=== PATIENT | female | born 2000 | race Caucasian/White ===

== ENCOUNTER 2022-03-11 16:16 | Emergency (ER) | payer BC ==
[~2022-03-11] VITALS: Ht 167.6 cm; Wt 54.5 kg
[2022-03-11 17:10] LABS: BASOPHILS % (AUTO) 0.5 % (0-1); EOSINOPHILS # (AUTO) 0.1 X10'3 (0-0.9); EOSINOPHILS % (AUTO) 0.9 % (0-6); HEMATOCRIT 42.7 % (35.0-45.0); HEMOGLOBIN 14.5 g/dl (12.0-16.0); LYMPHOCYTES % (AUTO) 29.2 % (21-51); MEAN CORPUSCULAR HEMOGLOBIN 31.6 PG (27.0-31.0); MEAN CORPUSCULAR VOLUME 92.8 FL (78-98); MEAN PLATELET VOLUME 6.8 FL (7.4-10.4); MONOCYTES # (AUTO) 0.5 X10'3 (0-0.9); MONOCYTES % (AUTO) 7.6 % (2-12); NEUTROPHILS # (AUTO) 4.2 X10'3 (1.8-7.7); NEUTROPHILS % (AUTO) 61.8 % (42-75); PLATELET COUNT 296 X10'3 (140-440); RED CELL DISTRIBUTION WIDTH 13.1 % (11.5-14.5); WHITE BLOOD COUNT 6.8 X10'3 (4.5-11.0)
[2022-03-11 17:26] LABS: ALANINE AMINOTRANSFERASE 21 U/L (12-78); ALBUMIN 4.4 G/DL (3.4-5.0); ALBUMIN/GLOBULIN RATIO 1.3 (1.1-1.5); ALKALINE PHOSPHATASE 74 IU/L (46-116); ANION GAP 8 (8-16); ASPARTATE AMINO TRANSFERASE 25 U/L (10-37); BILIRUBIN,TOTAL 0.6 MG/DL (0.1-1.0); BLOOD UREA NITROGEN 10 MG/DL (7-18); BUN/CREATININE RATIO 14.5 (6.6-38.0); CHLORIDE 103 MMOL/L (99-107); CREATININE 0.69 MG/DL (0.40-0.90); GLUCOSE 86 MG/DL (70-104); POTASSIUM 3.7 MMOL/L (3.5-5.1); SODIUM 139 MMOL/L (135-145); TOTAL CARBON DIOXIDE 28.5 MMOL/L (24-32); TOTAL PROTEIN 7.9 G/DL (6.4-8.2); eGFR > 90 ML/MIN
--- NOTE | 2022-03-11 18:16 | NUR ---
BED 16 STRIPPED AND PATIENT CHANGED IN GREEN SCRUBS. BELONGINGS BAGGED AT BED BEDSIDE.
--- NOTE | 2022-03-11 18:18 | NUR ---
CAUTION DINNER TRAY ORDERED.
[2022-03-11 18:20] LABS: ETHANOL < 0.010 GM/DL (0.0-0.010)
[2022-03-11 19:22] LABS: URINE HCG NEGATIVE (NEG)
[2022-03-11] MEDS ORDERED: PRAZOSIN PO (19:23)
[2022-03-11] MEDS ORDERED: FLUO-84 PO (19:23)
[2022-03-11] MEDS ORDERED: FLUO-81 PO (19:23)
[2022-03-11] MEDS ORDERED: LURA20TA PO (19:23)
[2022-03-11] MEDS ORDERED: HYDR-3686 PO (19:23)
[2022-03-11 19:34] LABS: CLARITY,URINE CLEAR (Clear); COLOR,URINE YELLOW (Yellow); GLUCOSE, URINE NEGATIVE (Neg); KETONES,URINE 40 mg/dl (Neg); LEUKOCYTE ESTERASE ,URINE NEGATIVE (Neg); NITRITES, URINE NEGATIVE (Neg); OCCULT BLOOD,URINE NEGATIVE (Neg); PROTEIN,URINE NEGATIVE (Neg); UA COLLECTION TYPE CLN CATCH MIDSTREAM; UROBILINOGEN,URINE 0.2 E.U/dL (0.2-1.0)
[2022-03-11 19:43] LABS: URINE AMPHETAMINE SCREEN NEGATIVE (Neg); URINE BARBITUATE SCREEN NEGATIVE (Neg); URINE BENZODIAZEPINES SCREEN NEGATIVE (Neg); URINE CANNABINOID SCREEN POSITIVE (Neg); URINE COCAINE SCREEN NEGATIVE (Neg); URINE METHADONE SCREEN NEGATIVE (Neg); URINE OPIATE SCREEN NEGATIVE (Neg); URINE PHENCYCLIDINE SCREEN NEGATIVE (Neg)
--- NOTE | 2022-03-11 20:25 | NUR ---
1:1 Interview at nurses station. Patient is polite, linear, she is well spoken. S/I is present with a plan to overdose on Benadryl. The patient states many suicidal thoughts over many weeks. One suicide attempt by overdose was attempted in June of 2021. This patient speaks in a quiet voice, the rhythm is regular. She makes direct eye contact. Patient states recent panic attacks. Patient states she paces when panic attacks happen. There is a depression and anxiety history. She is followed by Dr. Clark. Patients med rec is done. Patient bowel movements are every other day on average. She voids regularly. Patient denies any current audible or visual hallucinations at this time. The patient does mention that she has noticed her name being called when nobody was there. This happened while at work recently. Patient is not employed at this time, she lives with her parents.
--- NOTE | 2022-03-11 20:43 | NUR ---
[facility] packet faxed
[2022-03-11] MEDS ORDERED: PRAZ1CAP5 PO (21:07)
[2022-03-11] MEDS ORDERED: prazosin 1mg capsule PO ONE (21:20)
[2022-03-11] MEDS: lurasidone 20mg tablet PO SCH (21:42)
--- NOTE | 2022-03-11 22:27 | NUR ---
Patientis medication compliant. She is preparing for sleep. No distress.
--- NOTE | 2022-03-12 00:46 | NUR ---
Patient up to bathroom to void. She then returned to sleep.
--- NOTE | 2022-03-12 01:20 | NUR ---
Patient is sleeping quietly on her left side.
--- NOTE | 2022-03-12 03:21 | NUR ---
Patient is quietly sleeping. She has self repositioned onto her right side.
--- NOTE | 2022-03-12 06:30 | NUR ---
Assumed Care. Pt appears to be sleeping. RR even and unlabored.
--- NOTE | 2022-03-12 08:30 | NUR ---
Pt is up for breakfast. She ate and now appears to be sleeping.
[2022-03-12] MEDS: FLUoxetine 20mg capsule PO SCH (09:43)
[2022-03-12] MEDS: FLUoxetine 10mg capsule PO SCH (09:46)
--- NOTE | 2022-03-12 10:30 | NUR ---
Pt is making phone calls to family.
--- NOTE | 2022-03-12 12:30 | NUR ---
Pt ate lunch. She then did some yoga and called Mom. Pt is upset over being held on the 5150. Pt agrees to lay down and do some deep breathing.
--- NOTE | 2022-03-12 12:45 | NUR ---
Pt is tearful. She asked for and was given Atarax 25mg. Pt then returned to her bed and covered up and closed her eyes.
[2022-03-12] MEDS: hydrOXYzine 25 MG tablet PO PRN (12:49)
--- NOTE | 2022-03-12 14:10 | NUR ---
Pt continues to rest on her bed with her eyes closed.
--- NOTE | 2022-03-12 16:30 | NUR ---
Pt's mother is here visiting. She brought her in 2 books. Pt is calm and cooperative.
--- NOTE | 2022-03-12 17:01 | NUR ---
ER registration faxed new facesheet to [facility] office
--- NOTE | 2022-03-12 18:30 | NUR ---
Patient is visiting with her mother at bedside. No distress.
--- NOTE | 2022-03-12 19:38 | NUR ---
Patient is sitting in bed, she reads quietly.
[2022-03-12] MEDS: lurasidone 20mg tablet PO SCH (20:26)
[2022-03-12] MEDS ORDERED: prazosin 1mg capsule PO SCH (21:00)
--- NOTE | 2022-03-12 21:00 | NUR ---
Patient is resting quietly, she has did eat her dinner. Patient is medication compliant.
--- NOTE | 2022-03-12 22:15 | NUR ---
Patient was interviewed 1:1 at bedside. The patient is well oriented, cooperative, she makes direct eye contact. The patient had visitation with her mother following shift change. The patient denies S/I or H/I. The patient still has thoughts of how to suicide however. The patient is reading and exercising. Patient smiles often.
--- NOTE | 2022-03-13 03:56 | NUR ---
Patient is sleeping quietly on her left side.
[2022-03-13 05:49] VITALS: BP 112/60
--- NOTE | 2022-03-13 06:01 | NUR ---
Patient awakens, goes to restroom. She is brushing her teeth.
--- NOTE | 2022-03-13 08:15 | NUR ---
Pt sitting at bedside eathing breakfast tray, pt remains calm, cooperative and denies needs.
[2022-03-13] MEDS: FLUoxetine 20mg capsule PO SCH (08:34)
[2022-03-13] MEDS: FLUoxetine 10mg capsule PO SCH (08:34)
--- NOTE | 2022-03-13 10:16 | NUR ---
Pt currently talking on phone
--- NOTE | 2022-03-13 11:06 | NUR ---
Irish from the [facility] office called to report that pt has been accepted by Dr Ruperto Pearson at [facility]. She is coordinating a picker packer time.
--- NOTE | 2022-03-13 11:07 | NUR ---
Christy from [facility] called requesting to speak with pt's nurse who is currently on a break. She requests a call back for a nurse to nurse report at [phone].
--- NOTE | 2022-03-13 11:23 | NUR ---
Pt has been accepted at [facility] with accepting Dr Ruperto Pearson. Nurse to nurse report given to Lindsey, transport being coorinated by [facility].
[2022-03-13] MEDS: hydrOXYzine 25 MG tablet PO PRN (11:33)
--- NOTE | 2022-03-13 12:16 | NUR ---
Report from Irish of [facility] office that transport for pt to arrive around [phone]
--- NOTE | 2022-03-13 12:30 | NUR ---
Pt given hot water for herbal tea per pt request. Pt remains calm and cooperative.
--- NOTE | 2022-03-13 14:55 | NUR ---
Pt mother here visiting pt at bedside. Transport to arrive at anytime now for transport to psych facility.
--- NOTE | 2022-03-13 15:30 | NUR ---
Pt with reading glasses, clothing from home, personal hygeine supplies and books. Pt escorted out by security and flight/transport nurse per hospital policy.
== END 2022-03-13 15:30 | disposition still patient (30) ==
LOC: ER 16:17
DX: F32.A Depression, unspecified (principal); Z20.822 Contact with and (suspected) exposure to COVID-19; R45.851 Suicidal ideations; F12.90 Cannabis use, unspecified, uncomplicated; Z72.89 Other problems related to lifestyle; Z79.899 Other long term (current) drug therapy
CPT/HCPCS: 36415; 80053; 80305; 80320; 81003; 81025; 84443; 85025; 87811; 99285; Q0177

== ENCOUNTER 2022-04-14 17:56 | Emergency (ER) | payer BC ==
[~2022-04-14] VITALS: Ht 172.7 cm; Wt 54.0 kg
[2022-04-14 17:56] VITALS: BP 149/65
[~2022-04-14 17:56] MED LIST: FLUO-81 PO; FLUO-84 PO; HYDR-3686 PO; LURA20TA PO; PRAZ1CAP5 PO
== END 2022-04-14 18:56 ==
LOC: ER 17:57
DX: F12.90 Cannabis use, unspecified, uncomplicated; V89.2XXA Person injured in unspecified motor-vehicle accident, traffic, initial encounter; Y93.89 Activity, other specified; Y92.89 Other specified places as the place of occurrence of the external cause; Y99.8 Other external cause status
CPT/HCPCS: 99283

== ENCOUNTER 2023-04-05 15:28 | Emergency (ER) | payer BC, MEDICAID ==
[~2023-04-05] VITALS: Ht 172.7 cm; Wt 59.2 kg
[~2023-04-05 15:28] MED LIST changes: -LURA20TA PO; +LURA20TA8 PO
[2023-04-05] MEDS ORDERED: TETanus/Pertussis (Acell)/Diphther VAC/PF (Tdap-Adult) 0.5ml syringe IMVAC ONE (15:55)
[2023-04-05] MEDS ORDERED: ceFAZolin/D5W- 1GM premix 50 ML IV SCH (16:00)
[2023-04-05 16:28] LABS: BASOPHILS # (AUTO) 0.1 X10'3 (0-0.2); BASOPHILS % (AUTO) 0.8 % (0-1); EOSINOPHILS # (AUTO) 0.1 X10'3 (0-0.9); HEMATOCRIT 45.4 % (35.0-45.0); HEMOGLOBIN 15.4 g/dl (12.0-16.0); LYMPHOCYTES # (AUTO) 2.5 X10'3 (1.1-4.8); LYMPHOCYTES % (AUTO) 32.5 % (21-51); MEAN CORPUSCULAR HEMOGLOBIN 32.7 PG (27.0-31.0); MEAN CORPUSCULAR VOLUME 96.2 FL (78-98); MONOCYTES # (AUTO) 0.4 X10'3 (0-0.9); MONOCYTES % (AUTO) 4.9 % (2-12); NEUTROPHILS # (AUTO) 4.6 X10'3 (1.8-7.7); NEUTROPHILS % (AUTO) 60.8 % (42-75); PLATELET COUNT 401 X10'3 (140-440); RED BLOOD COUNT 4.72 X10'6 (4.20-5.60); RED CELL DISTRIBUTION WIDTH 13.5 % (11.5-14.5); WHITE BLOOD COUNT 7.6 X10'3 (4.5-11.0)
[2023-04-05 17:36] LABS: ALANINE AMINOTRANSFERASE 22 U/L (12-78); ALBUMIN 3.5 G/DL (3.4-5.0); ALBUMIN/GLOBULIN RATIO 1.1 (1.1-1.5); ALKALINE PHOSPHATASE 61 IU/L (46-116); ANION GAP 11 (8-16); ASPARTATE AMINO TRANSFERASE 24 U/L (10-37); BILIRUBIN,TOTAL 0.3 MG/DL (0.1-1.0); BLOOD UREA NITROGEN 6 MG/DL (7-18); BUN/CREATININE RATIO 10.5 (10.0-20.0); CALCIUM 7.7 MG/DL (8.5-10.1); CHLORIDE 109 MMOL/L (99-107); CREATININE 0.57 MG/DL (0.40-0.90); ETHANOL 155 MG/DL (<10); GLUCOSE 86 MG/DL (70-104); LIPASE 22 U/L (16-77); MAGNESIUM 1.9 MG/DL (1.5-2.4); POTASSIUM 3.5 MMOL/L (3.5-5.1); SALICYLATE 2.5 MG/DL (4.0-20.0); SODIUM 142 MMOL/L (135-145); TOTAL CARBON DIOXIDE 21.8 MMOL/L (24-32); TOTAL PROTEIN 6.6 G/DL (6.4-8.2); eCRCL 143 ML/MIN; eGFR > 90 ML/MIN
[2023-04-05 17:42] LABS: ACETAMINOPHEN < 2.0 UG/ML (10-30)
[2023-04-05 17:43] LABS: HCG SERUM QL NEGATIVE
--- NOTE | 2023-04-05 18:16 | NUR ---
Report called to Herrera Posey RN @ [facility]. Phone number report called to: [phone]. Flight medics left with patient @ 1810. Last set of vitals: 128/84, RR 18, HR97, 98% RA BP cuff tourniquet in place at this time. CMS+ in all left hand digits, cap refill <2 seconds. Packet sent with patient.
[2023-04-05 18:20] VITALS: BP 128/84; PULSE 97; RESP 18; O2SAT 99
--- NOTE | 2023-04-05 18:43 | NUR ---
Suicide risk assessment performed prior to patient being transferred, but charted afterwards. Physical care (controlling bleeding and medicating pt) superceeded psychosocial charting during pt's stya. Patient stating she "feels fine" during time in the ER, but "it was bad" earlier. Stating she had no suicidal thoughts. Significant other at bedside entire time and room within view of nurses station.
== END 2023-04-05 18:48 ==
LOC: ER 15:28
DX: S61.512A Laceration without foreign body of left wrist, initial encounter (principal)
CPT/HCPCS: 36415; 80053; 80320; 80329; 83690; 83735; 84703; 85025; 86885; 86900; 86901; 90471; 90715; 93005; 93931; 96365; 99285; J0690; A6449

== ENCOUNTER 2024-10-16 15:22 | Emergency (ER) | payer BC, MEDICAID ==
[~2024-10-16] VITALS: Ht 172.7 cm; Wt 57.9 kg
[2024-10-16 16:20] LABS: BASOPHILS % (AUTO) 0.4 % (0-1); EOSINOPHILS % (AUTO) 0.3 % (0-6); HEMATOCRIT 42.8 % (35.0-45.0); HEMOGLOBIN 14.4 g/dl (12.0-16.0); LYMPHOCYTES # (AUTO) 1.2 X10'3 (1.1-4.8); LYMPHOCYTES % (AUTO) 12.5 % (21-51); MEAN CORPUSCULAR HEMOGLOBIN 30.5 PG (27.0-31.0); MEAN CORPUSCULAR HGB CONC 33.6 g/dL (33.0-36.5); MEAN CORPUSCULAR VOLUME 90.8 FL (78-98); MEAN PLATELET VOLUME 6.9 FL (7.4-10.4); MONOCYTES # (AUTO) 0.5 X10'3 (0-0.9); MONOCYTES % (AUTO) 5.3 % (2-12); NEUTROPHILS # (AUTO) 7.9 X10'3 (1.8-7.7); NEUTROPHILS % (AUTO) 81.5 % (42-75); PLATELET COUNT 426 X10'3 (140-440); RED BLOOD COUNT 4.71 X10'6 (4.20-5.60); RED CELL DISTRIBUTION WIDTH 13.6 % (11.5-14.5); WHITE BLOOD COUNT 9.7 X10'3 (4.5-11.0)
[2024-10-16 16:27] LABS: ALANINE AMINOTRANSFERASE 23 U/L (12-78); ALBUMIN 4.2 G/DL (3.4-5.0); ALBUMIN/GLOBULIN RATIO 1.3 (1.1-1.5); ALKALINE PHOSPHATASE 87 IU/L (46-116); ANION GAP 8 (8-16); ASPARTATE AMINO TRANSFERASE 23 U/L (10-37); BILIRUBIN,TOTAL 0.3 MG/DL (0.1-1.0); BLOOD UREA NITROGEN 5 MG/DL (7-18); BUN/CREATININE RATIO 9.3 (10.0-20.0); CALCIUM 8.9 MG/DL (8.5-10.1); CHLORIDE 101 MMOL/L (99-107); CREATININE 0.54 MG/DL (0.40-0.90); GLUCOSE 109 MG/DL (70-104); POTASSIUM 4.1 MMOL/L (3.5-5.1); SODIUM 136 MMOL/L (135-145); TOTAL CARBON DIOXIDE 26.6 MMOL/L (24-32); TOTAL PROTEIN 7.4 G/DL (6.4-8.2); eCRCL 145 ML/MIN; eGFR > 90 ML/MIN
[2024-10-16] MEDS ORDERED: iohexol 300mg/ml 100ml inj. ONE (16:27)
[2024-10-16 16:58] VITALS: TEMP 97.7
[2024-10-16 17:22] LABS: URINE HCG NEGATIVE (NEG)
--- NOTE | 2024-10-16 17:48 | Physician Documentation ---
History of Present Illness ~ Chief Complaint: Foreign body Stated Complaint: SWALLOWED GLASS/BLOOD IN STOOL Time Seen by MD: 15:47 Primary Medical Doctor: DAMIAN HENDRICKS 24 year old female reports that on Tuesday she was drinking through a glass straw and believes that she may have swallowed 2x 1cm pieces of broken glass. Today she experienced some diffuse abdominal pain and some dark colored stool. She denies fever, N/V/D. Medication Reconciliation Allergies: Coded Allergies: No Known Allergies (Unverified , 10/16/24) Scheduled Fluoxetine Hcl (Fluoxetine Hcl), 1 CAP PO DAILY, (Reported) Fluoxetine Hcl (Fluoxetine Hcl), 1 CAP PO DAILY, (Reported) Lurasidone HCl (Latuda), 1 TAB PO HS, (Reported) Prazosin Hcl (Prazosin Hcl), 1 CAP PO HS, (Reported) Scheduled PRN Hydroxyzine Hcl* (Atarax*), 1 TAB PO DAILY PRN for anxiety, (Reported) Past Medical History Past Medical History: Depression Past Surgical History: no surgical history Alcohol Use: Alcoholic Drug Use: marijuana Lives with: Family Lives In: Home Past Social History: Reports when drinks alcohol, drinks significant amount. Review of Systems All Other Systems at this time: Reviewed and Negative Physical Exam Vital Signs: RN Vital Signs have been reviewed: Yes, Temperature: 97.7, Source: Temporal, Heart Rate: 58, Respiratory Rate: 16, BP: 117/68, Pulse Oximetry: 98, Weight: 57.850 Oxygen Flow Rate: 0 Physical Exam HEENT: PERRL, moist oral mucosa, EOMI Pulmonary: No respiratory distress Cardiac: RRR, no murmur, rub or gallop GI: nondistended, soft, nontender, no guarding, no rebound MSK: no deformity Skin: w/d/i, no rash Neuro: alert, nonfocal Psych: normal affect Progress Results/Orders Results/Orders Orders - ROSARIO SOLIMAN MD Ct Abdomen Pelvis (10/16/24 15:42) Completed Orders - ROSARIO SOLIMAN MD Cbc/Diff (10/16/24 15:42) CMP (10/16/24 15:42) Hcg, Ur Ql (10/16/24 15:52) Iohexol 300mg/Ml 100ml Inj. (Omnipaque-3 (10/16/24 16:27) Vital Signs 10/16/24 10/16/24 10/16/24 15:24 16:05 16:58 Temp 97.7 97.7 Pulse 66 58 Resp 18 16 B/P (MAP) 121/78 117/68 (84) Pulse Ox 99 98 O2 Flow Rate 0 Laboratory Tests Test 10/16/24 15:35 10/16/24 16:55 White Blood Count 9.7 Red Blood Count 4.71 Hemoglobin 14.4 Hematocrit 42.8 Mean Corpuscular Volume 90.8 Mean Corpuscular Hemoglobin 30.5 Mean Corpuscular Hemoglobin Concent 33.6 Red Cell Distribution Width 13.6 Platelet Count 426 Mean Platelet Volume 6.9 L Neutrophils (%) (Auto) 81.5 H Lymphocytes (%) (Auto) 12.5 L Monocytes (%) (Auto) 5.3 Eosinophils (%) (Auto) 0.3 Basophils (%) (Auto) 0.4 Neutrophils # (Auto) 7.9 H Lymphocytes # (Auto) 1.2 Monocytes # (Auto) 0.5 Eosinophils # (Auto) 0.0 Basophils # (Auto) 0.0 CBC Comment Sodium Level 136 Potassium Level 4.1 Chloride Level 101 Carbon Dioxide Level 26.6 Anion Gap 8 Blood Urea Nitrogen 5 L Creatinine 0.54 Estimated GFR/1.73 m2 > 90 BUN/Creatinine Ratio 9.3 L Glucose Level 109 H Calcium Level 8.9 Total Bilirubin 0.3 Aspartate Amino Transf (AST/SGOT) 23 Alanine Aminotransferase (ALT/SGPT) 23 Alkaline Phosphatase 87 Total Protein 7.4 Albumin 4.2 Globulin 3.2 Albumin/Globulin Ratio 1.3 Chemistry Comments Urine HCG, Qualitative Negative Medical Decision Making Findings 24 year old female with abdominal pain and possible broken glass ingestion. Dr. Taylor recommends CT scan and labs and discharge if no findings, given duration of time that has passed. Will sign out to oncoming ER physician for disposition. Departure Disposition: 30 STILL A PATIENT Impression: Primary Impression: Foreign body ingestion Condition: Stable Discharge Instructions: Foreign Body, Swallowed, Adult Referrals: NO PRIMARY CARE PROVIDER (PCP) Education Educated: Patient Educated regarding: diagnosis, treatment, prognosis, need for follow up Signature Scribe Signature: . Attestation: . ROSARIO SOLIMAN MD October 16, 2024 17:48
--- NOTE | 2024-10-16 18:15 | RADIOLOGY REPORT ---
Indication: abdomnial pain after swallowing broken glass Technique: CT axial images of the abdomen and pelvis are obtained with intravenous contrast. Coronal and sagittal reformats were obtained. Radiation Dose Information: CTDI volume is 6.4 mGy. Dose-length product is 305 mGy*cm Comparison: None FINDINGS: Lung bases demonstrate no pleural effusion. Adrenal glands, spleen and pancreas unremarkable. No enhancing hepatic lesion. Fatty infiltration jason ng the falciform. No CT evidence for cholelithiasis. Kidneys demonstrate no hydronephrosis. Small hiatal hernia. Distal esophageal wall thickening. Stomach is partially distended. Small ashlyn l loops are normal in caliber. 12 mm radiopaque density in the small bowel in the left abdomen/jejuna l loops. There is a moderate volume stool within the colon. Normal appendix. Abdominal aorta normal in caliber. Bladder partially distended. Left ovarian cyst measuring 1.9 cm. No inguinal lymphadenopathy. IMPRESSION: 1. No evidence for pneumoperitoneum. 12 mm radiopaque density in the small bowel loops in the left ab domen /jejunum, may represent the ingested foreign body. 2. Distal esophageal Wall thickening. Recommend GI consultation for further evaluation. 3. Left ovarian cyst measuring 1.9 cm. 4. Other findings as described.
[2024-10-16 18:42] VITALS: BP 120/71; PULSE 77; RESP 16; O2SAT 98
== END 2024-10-16 18:45 | disposition still patient (30) ==
LOC: ER 15:22
DX: T18.9XXA Foreign body of alimentary tract, part unspecified, initial encounter (principal); W44.9XXA Unspecified foreign body entering into or through a natural orifice, initial encounter; Y93.89 Activity, other specified; Y92.89 Other specified places as the place of occurrence of the external cause; Y99.8 Other external cause status
CPT/HCPCS: 36415; 74177; 80053; 81025; 85025; 99285; Q9967

== ENCOUNTER 2024-11-05 22:38 | Emergency (ER) | payer BC ==
[~2024-11-05] VITALS: Ht 172.7 cm; Wt 65.0 kg
[2024-11-05 23:22] LABS: BASOPHILS % (AUTO) 0.6 % (0-1); EOSINOPHILS # (AUTO) 0.1 X10'3 (0-0.9); HEMATOCRIT 41.7 % (35.0-45.0); HEMOGLOBIN 14.2 g/dl (12.0-16.0); LYMPHOCYTES # (AUTO) 2.1 X10'3 (1.1-4.8); LYMPHOCYTES % (AUTO) 28.7 % (21-51); MEAN CORPUSCULAR HEMOGLOBIN 31.4 PG (27.0-31.0); MEAN CORPUSCULAR HGB CONC 34.1 g/dL (33.0-36.5); MEAN CORPUSCULAR VOLUME 92.2 FL (78-98); MEAN PLATELET VOLUME 6.4 FL (7.4-10.4); MONOCYTES # (AUTO) 0.3 X10'3 (0-0.9); MONOCYTES % (AUTO) 4.7 % (2-12); NEUTROPHILS # (AUTO) 4.7 X10'3 (1.8-7.7); PLATELET COUNT 324 X10'3 (140-440); RED BLOOD COUNT 4.52 X10'6 (4.20-5.60); RED CELL DISTRIBUTION WIDTH 14.1 % (11.5-14.5); WHITE BLOOD COUNT 7.2 X10'3 (4.5-11.0)
[2024-11-05 23:38] LABS: ALANINE AMINOTRANSFERASE 42 U/L (12-78); ALBUMIN 4.4 G/DL (3.4-5.0); ALBUMIN/GLOBULIN RATIO 1.3 (1.1-1.5); ALKALINE PHOSPHATASE 73 IU/L (46-116); ANION GAP 12 (8-16); ASPARTATE AMINO TRANSFERASE 44 U/L (10-37); BILIRUBIN,TOTAL 0.4 MG/DL (0.1-1.0); BLOOD UREA NITROGEN 5 MG/DL (7-18); BUN/CREATININE RATIO 8.9 (10.0-20.0); CALCIUM 8.4 MG/DL (8.5-10.1); CHLORIDE 102 MMOL/L (99-107); CREATININE 0.56 MG/DL (0.40-0.90); ETHANOL 209 MG/DL (<10); GLUCOSE 75 MG/DL (70-104); LIPASE 25 U/L (16-77); POTASSIUM 3.3 MMOL/L (3.5-5.1); SODIUM 139 MMOL/L (135-145); TOTAL CARBON DIOXIDE 25.1 MMOL/L (24-32); TOTAL PROTEIN 7.7 G/DL (6.4-8.2); eCRCL 155 ML/MIN; eGFR > 90 ML/MIN
--- NOTE | 2024-11-06 00:02 | Physician Documentation ---
History of Present Illness ~ Chief Complaint: ETOH Stated Complaint: MENTAL HEALTH EVAL Time Seen by MD: 23:58 Primary Medical Doctor: DAMIAN Mode of Arrival: POV HPI Patient presents to the emergency room for suicidal ideation. Patient is a uncooperative with questioning. Family at bedside endorse suicidal ideation in patient Medication Reconciliation Allergies: Coded Allergies: No Known Allergies (Unverified , 10/16/24) Scheduled Fluoxetine Hcl (Fluoxetine Hcl), 1 CAP PO DAILY, (Reported) Fluoxetine Hcl (Fluoxetine Hcl), 1 CAP PO DAILY, (Reported) Lurasidone HCl (Latuda), 1 TAB PO HS, (Reported) Prazosin Hcl (Prazosin Hcl), 1 CAP PO HS, (Reported) Scheduled PRN Hydroxyzine Hcl* (Atarax*), 1 TAB PO DAILY PRN for anxiety, (Reported) Past Medical History Past Medical History: Depression Past Surgical History: no surgical history Alcohol Use: Alcoholic Drug Use: marijuana Lives with: Family Lives In: Home Past Social History: Reports when drinks alcohol, drinks significant amount. Review of Systems ROS Patient was uncooperative with review of systems Physical Exam Vital Signs: Temperature: 97.8, Source: Oral, Heart Rate: 72, Respiratory Rate: 10, BP: 101/54, Pulse Oximetry: 97, Weight: 65.000 Oxygen Flow Rate: 0 Physical Exam General: Patient is awake, alert, oriented x4 in no acute distress Head: Normocephalic and atraumatic. Eyes: Conjunctival normal. EOMI. PERRL. ENT: Mucous membranes moist. Neck: Supple, trachea is midline. Chest: Clear to auscultation bilaterally without rales, rhonchi, or wheezes. There is no accessory muscle use or retractions. Cardiac: RRR without murmurs, gallops, or rubs. Psych: Decreased affect, poor eye contact, suicidal Progress Results/Orders Results/Orders Orders - ANT CALLAWAY MD Urinalysis, Cult If Indicated (11/05/24 23:00) Hcg, Ur Ql (11/05/24 23:00) Completed Orders - ANT CALLAWAY MD Cbc/Diff (11/05/24 23:00) BMP (11/05/24 23:00) Lipase (11/05/24 23:00) CMP (11/05/24 23:00) Ethanol (11/05/24 23:00) Vital Signs 11/05/24 11/05/24 11/05/24 22:48 23:51 23:56 Temp 97.8 97.8 Pulse 74 72 Resp 18 12 10 B/P (MAP) 123/76 101/54 (70) Pulse Ox 100 97 O2 Flow Rate 0 0 Laboratory Tests Test 11/05/24 23:10 White Blood Count 7.2 Red Blood Count 4.52 Hemoglobin 14.2 Hematocrit 41.7 Mean Corpuscular Volume 92.2 Mean Corpuscular Hemoglobin 31.4 H Mean Corpuscular Hemoglobin Concent 34.1 Red Cell Distribution Width 14.1 Platelet Count 324 Mean Platelet Volume 6.4 L Neutrophils (%) (Auto) 65.0 Lymphocytes (%) (Auto) 28.7 Monocytes (%) (Auto) 4.7 Eosinophils (%) (Auto) 1.0 Basophils (%) (Auto) 0.6 Neutrophils # (Auto) 4.7 Lymphocytes # (Auto) 2.1 Monocytes # (Auto) 0.3 Eosinophils # (Auto) 0.1 Basophils # (Auto) 0.0 CBC Comment Sodium Level 139 Potassium Level 3.3 L Chloride Level 102 Carbon Dioxide Level 25.1 Anion Gap 12 Blood Urea Nitrogen 5 L Creatinine 0.56 Estimated GFR/1.73 m2 > 90 BUN/Creatinine Ratio 8.9 L Glucose Level 75 Calcium Level 8.4 L Total Bilirubin 0.4 Aspartate Amino Transf (AST/SGOT) 44 H Alanine Aminotransferase (ALT/SGPT) 42 Alkaline Phosphatase 73 Total Protein 7.7 Albumin 4.4 Globulin 3.3 Albumin/Globulin Ratio 1.3 Lipase 25 Chemistry Comments Ethyl Alcohol Level 209 H Medical Decision Making Findings Patient presents to the emergency room with suicidal ideation. Differentials include but are not limited to suicidal ideation, dysthymia, depression, thyroid disorder. Labs reviewed and there was no evidence of major pathologic derangements and patient is medically cleared for mental health evaluation Departure Disposition: 30 STILL A PATIENT Impression: Primary Impression: Alcoholic intoxication Additional Impressions: Suicidal ideation Hypokalemia Condition: Stable Referrals: NO PRIMARY CARE PROVIDER (PCP) Signature Scribe Signature: No scribe Attestation: The note accurately reflects work and decisions made by me.Ant Callaway MD 11/06/24 00:02 ANT CALLAWAY MD Nov 06, 2024 00:02
[2024-11-06] MEDS: potassium Cl 20 mEq SR tablet PO STA (00:13)
[2024-11-06] MEDS: ondansetron 4mg rapidly disintigrating tab PO ONE (03:50)
[2024-11-06] MEDS: acetaminophen 325mg tablet PO ONE (03:51)
[2024-11-06 08:00] LABS: URINE HCG NEGATIVE (NEG)
[2024-11-06 08:04] LABS: BILIRUBIN,URINE NEGATIVE (Neg); CLARITY,URINE CLEAR (Clear); COLOR,URINE YELLOW (Yellow); GLUCOSE, URINE NEGATIVE (Neg); KETONES,URINE >=80 mg/dl (Neg); LEUKOCYTE ESTERASE ,URINE NEGATIVE (Neg); NITRITES, URINE NEGATIVE (Neg); OCCULT BLOOD,URINE SMALL (Neg); PROTEIN,URINE NEGATIVE (Neg); UROBILINOGEN,URINE 0.2 E.U/dL (0.2-1.0)
[2024-11-06 08:05] LABS: UA COLLECTION TYPE CLN CATCH MIDSTREAM
[2024-11-06 08:13] LABS: BACTERIA,URINE NONE SEEN /HPF (Neg); MUCUS STRANDS MODERATE /LPF (Neg); RBC,URINE 0-2 /HPF (0-2); SQUAMOUS EPITHELIAL CELL,UR FEW /LPF (FEW); WBC,URINE 0-4 /HPF (0-4)
[2024-11-06] MEDS ORDERED: SERT-433 PO (09:54)
[2024-11-06] MEDS ORDERED: TRAZ-251 PO (09:54)
[2024-11-06 09:55] LABS: URINE AMPHETAMINE SCREEN NEGATIVE (Neg); URINE BARBITUATE SCREEN NEGATIVE (Neg); URINE BENZODIAZEPINES SCREEN NEGATIVE (Neg); URINE CANNABINOID SCREEN POSITIVE (Neg); URINE COCAINE SCREEN NEGATIVE (Neg); URINE METHADONE SCREEN NEGATIVE (Neg); URINE OPIATE SCREEN NEGATIVE (Neg); URINE PHENCYCLIDINE SCREEN NEGATIVE (Neg)
[2024-11-06] MEDS ORDERED: traZODone 50mg tablet PO PRN (11:15)
[2024-11-06] MEDS ORDERED: hydrOXYzine 25 MG tablet PO PRN (11:15)
[2024-11-06] MEDS: nicotine 7mg patch - 24hr TD SCH (12:52)
[2024-11-06] MEDS: ondansetron 4mg rapidly disintigrating tab PO PRN (12:53)
[2024-11-06] MEDS: acetaminophen 325mg tablet PO PRN (12:53)
[2024-11-06 13:58] VITALS: BP 92/43; PULSE 63; RESP 16; TEMP 97.3; O2SAT 98
[2024-11-07] MEDS ORDERED: sertraline 50mg tablet PO SCH (08:00)
== END 2024-11-06 13:58 | disposition still patient (30) ==
LOC: ER 22:39
DX: R45.851 Suicidal ideations (principal); F10.129 Alcohol abuse with intoxication, unspecified; E87.6 Hypokalemia; F32.A Depression, unspecified; F12.90 Cannabis use, unspecified, uncomplicated; Y90.9 Presence of alcohol in blood, level not specified; Z79.899 Other long term (current) drug therapy
CPT/HCPCS: 36415; 80053; 80305; 80320; 81001; 81025; 83690; 85025; 99285

== ENCOUNTER 2024-11-25 18:10 | Emergency (ER) | payer BC ==
[~2024-11-25] VITALS: Ht 170.2 cm; Wt 54.5 kg
[~2024-11-25 18:10] MED LIST changes: -FLUO-81 PO; -FLUO-84 PO; -LURA20TA8 PO; -PRAZ1CAP5 PO; +SERT-433 PO; +TRAZ-251 PO
--- NOTE | 2024-11-25 18:39 | Physician Documentation ---
History of Present Illness ~ Chief Complaint: 5150 Stated Complaint: 5150 Time Seen by MD: 18:19 Primary Medical Doctor: DAMIAN HENDRICKS This 24-year-old female with a history of depression presents today via law enforcement on a 5150 due to suicidal ideation. She states that she had tender to OD on her medication. She says that she takes sertraline and trazodone. Take her trazodone to kill herself this is a few this has a many life stressors which have led her to feel this way Medication Reconciliation Allergies: Coded Allergies: No Known Allergies (Unverified , 10/16/24) Scheduled Sertraline Hcl* (Zoloft*), 1 TAB PO DAILY, (Reported) Sertraline Hcl* (Zoloft*), 1 TAB PO DAILY, (Reported) Scheduled PRN Hydroxyzine Hcl* (Atarax*), 1 TAB PO DAILY PRN for anxiety, (Reported) Trazodone HCl (Trazodone HCl), 1 TAB PO HS PRN for sleep, (Reported) Discontinued Medications Sertraline HCl (Sertraline HCl), 1 TAB PO DAILY, (Reported) Discontinued Reason: Pt. condition changed Trazodone HCl (Trazodone HCl), 0.5 TAB PO HS PRN for insomnia, (Reported) Discontinued Reason: Pt. condition changed Past Medical History Past Medical History: Depression Past Surgical History: no surgical history Alcohol Use: Alcoholic Drug Use: marijuana Lives with: Family Lives In: Home Past Social History: Reports when drinks alcohol, drinks significant amount. Physical Exam Vital Signs: Temperature: 98.0, Source: Temporal, Heart Rate: 68, Respiratory Rate: 16, BP: 120/82, Pulse Oximetry: 98, Weight: 54.550 Oxygen Flow Rate: 0 Progress Results/Orders Results/Orders Orders - LILY OCAMPO MD Nicotine 7mg Patch - 24hr (Habitrol Patc (11/27/24 08:00) Vital Signs 11/25/24 11/25/24 11/26/24 11/26/24 18:15 19:30 05:34 07:47 Temp 98.0 97.8 Pulse 68 66 Resp 16 20 14 14 B/P (MAP) 120/82 105/62 (76) Pulse Ox 98 O2 Flow Rate 0 Laboratory Tests Test 6/22/25 18:30 11/25/24 18:31 11/25/24 18:43 SARS-CoV-2 Antigen (Rapid) Negative Urine Specimen Description Cln catch midstream Urine Color Red Urine Clarity Slightly cloudy Urine pH 6.0 Urine Specific Margie 1.010 Urine Protein 30 H Urine Glucose (UA) Negative Urine Ketones Trace H Urine Occult Blood Large H Urine Nitrite Negative Urine Bilirubin Negative Urine Urobilinogen 0.2 Urine Leukocyte Esterase Trace H Urine RBC Tntc Urine WBC 5-10 H Urine WBC Clumps Few Urine Squamous Epithelial Cells Few Urine Bacteria Few Volume Urine Centrifuged 10 ml Urine HCG, Qualitative Negative Urine Comment Urine Opiates Screen Negative Urine Methadone Screen Negative Urine Fentanyl Screen Negative Urine Barbiturates Screen Negative Urine Phencyclidine Screen Negative Urine Amphetamines Screen Negative Urine Benzodiazepines Screen Negative Urine Cocaine Screen Negative Urine Cannabinoids Screen Positive Drug Screen Comment White Blood Count 9.6 Red Blood Count 4.18 L Hemoglobin 13.5 Hematocrit 38.7 Mean Corpuscular Volume 92.6 Mean Corpuscular Hemoglobin 32.2 H Mean Corpuscular Hemoglobin Concent 34.7 Red Cell Distribution Width 14.5 Platelet Count 345 Mean Platelet Volume 6.5 L Neutrophils (%) (Auto) 72.3 Lymphocytes (%) (Auto) 19.6 L Monocytes (%) (Auto) 7.1 Eosinophils (%) (Auto) 0.6 Basophils (%) (Auto) 0.4 Neutrophils # (Auto) 7.0 Lymphocytes # (Auto) 1.9 Monocytes # (Auto) 0.7 Eosinophils # (Auto) 0.1 Basophils # (Auto) 0.0 CBC Comment Sodium Level 138 Potassium Level 3.4 L Chloride Level 104 Carbon Dioxide Level 25.5 Anion Gap 9 Blood Urea Nitrogen 6 L Creatinine 0.57 Estimated GFR/1.73 m2 > 90 BUN/Creatinine Ratio 10.5 Glucose Level 94 Calcium Level 8.8 Albumin 4.0 Thyroid Stimulating Hormone (TSH) 1.13 Chemistry Comments Ethyl Alcohol Level < 10 Medical Decision Making Findings 24-year-old presents with clinical indications for depression and SI. She is currently medically cleared and he is to be evaluated by [facility] Differential Dx:Considerations: Include: Alcohol abuse, Anxiety, Bipolar disorder, Conversion disorder, Depression, Encephaloathy, Homicidal, Panic disorder, Personality disorder, Schizophrenia, Substance abuse, Suicidal, Other Departure Disposition: 01 HOME / SELF CARE / HOMELESS Impression: Primary Impression: Suicidal ideation Additional Impression: Depression Condition: Stable Additional Instructions: Transfer orders for [facility]: At this time there is no evidence of an emergent medical condition that would preclude (admission/transfer) to a psychiatric unit via [facility] protocol for further psychiatric, as well as medical evaluation and treatment. At this time I have no reason to believe that transfer via [facility] protocol would have serious medical compromise in the patient's health. Referrals: NO PRIMARY CARE PROVIDER (PCP) Signature Scribe Signature: g Attestation: Scribed for [employer] Attendant by Von Perrin NP . 11/25/24 23:46 VON BISHOP NP Nov 25, 2024 18:39 LILY OCAMPO MD Nov 26, 2024 16:54
[2024-11-25 18:52] LABS: URINE HCG NEGATIVE (NEG)
[2024-11-25 19:01] LABS: BASOPHILS % (AUTO) 0.4 % (0-1); EOSINOPHILS # (AUTO) 0.1 X10'3 (0-0.9); EOSINOPHILS % (AUTO) 0.6 % (0-6); HEMATOCRIT 38.7 % (35.0-45.0); HEMOGLOBIN 13.5 g/dl (12.0-16.0); LYMPHOCYTES # (AUTO) 1.9 X10'3 (1.1-4.8); LYMPHOCYTES % (AUTO) 19.6 % (21-51); MEAN CORPUSCULAR HEMOGLOBIN 32.2 PG (27.0-31.0); MEAN CORPUSCULAR HGB CONC 34.7 g/dL (33.0-36.5); MEAN CORPUSCULAR VOLUME 92.6 FL (78-98); MEAN PLATELET VOLUME 6.5 FL (7.4-10.4); MONOCYTES # (AUTO) 0.7 X10'3 (0-0.9); MONOCYTES % (AUTO) 7.1 % (2-12); NEUTROPHILS % (AUTO) 72.3 % (42-75); PLATELET COUNT 345 X10'3 (140-440); RED BLOOD COUNT 4.18 X10'6 (4.20-5.60); RED CELL DISTRIBUTION WIDTH 14.5 % (11.5-14.5); WHITE BLOOD COUNT 9.6 X10'3 (4.5-11.0)
[2024-11-25 19:01] LABS: BILIRUBIN,URINE NEGATIVE (Neg); CLARITY,URINE SLIGHTLY CLOUDY (Clear); COLOR,URINE RED (Yellow); GLUCOSE, URINE NEGATIVE (Neg); KETONES,URINE TRACE mg/dl (Neg); LEUKOCYTE ESTERASE ,URINE TRACE (Neg); NITRITES, URINE NEGATIVE (Neg); OCCULT BLOOD,URINE LARGE (Neg); PROTEIN,URINE 30 mg/dl (Neg); UROBILINOGEN,URINE 0.2 E.U/dL (0.2-1.0)
[2024-11-25 19:08] LABS: UA COLLECTION TYPE CLN CATCH MIDSTREAM
[2024-11-25 19:10] LABS: BACTERIA,URINE FEW /HPF (Neg); RBC,URINE TNTC /HPF (0-2); SQUAMOUS EPITHELIAL CELL,UR FEW /LPF (FEW); WBC CLUMPS,URINE FEW /HPF (NEGATIVE)
[2024-11-25 19:11] LABS: URINE AMPHETAMINE SCREEN NEGATIVE (Neg); URINE BARBITUATE SCREEN NEGATIVE (Neg); URINE BENZODIAZEPINES SCREEN NEGATIVE (Neg); URINE CANNABINOID SCREEN POSITIVE (Neg); URINE COCAINE SCREEN NEGATIVE (Neg); URINE METHADONE SCREEN NEGATIVE (Neg); URINE OPIATE SCREEN NEGATIVE (Neg); URINE PHENCYCLIDINE SCREEN NEGATIVE (Neg)
[2024-11-25 19:20] LABS: ANION GAP 9 (8-16); BLOOD UREA NITROGEN 6 MG/DL (7-18); BUN/CREATININE RATIO 10.5 (10.0-20.0); CALCIUM 8.8 MG/DL (8.5-10.1); CHLORIDE 104 MMOL/L (99-107); CREATININE 0.57 MG/DL (0.40-0.90); ETHANOL < 10 MG/DL (<10); GLUCOSE 94 MG/DL (70-104); POTASSIUM 3.4 MMOL/L (3.5-5.1); SODIUM 138 MMOL/L (135-145); THYROID STIMULATING HORMONE 1.13 ulU/ml (0.34-4.50); TOTAL CARBON DIOXIDE 25.5 MMOL/L (24-32); eCRCL 130 ML/MIN; eGFR > 90 ML/MIN
[2024-11-25] MEDS: acetaminophen 325mg tablet PO ONE (20:48)
[2024-11-25] MEDS ORDERED: SERT50TA PO (21:03)
[2024-11-25] MEDS ORDERED: SERT25TA PO (21:03)
[2024-11-25] MEDS: traZODone 50mg tablet PO PRN (21:33)
[2024-11-25] MEDS: potassium Cl 20 mEq SR tablet PO STA (23:18)
[2024-11-25] MEDS: sulfamethoxazole/trimethoprim DS (800/160mg) tablet PO SCH (23:18)
[2024-11-26] MEDS: hydrOXYzine 25 MG tablet PO PRN (05:49)
[2024-11-26] MEDS ORDERED: sertraline 50mg tablet PO SCH (08:00)
[2024-11-26] MEDS: sulfamethoxazole/trimethoprim DS (800/160mg) tablet PO SCH (08:51)
[2024-11-26] MEDS: sertraline 25mg tablet PO SCH (08:51)
[2024-11-26 17:11] VITALS: BP 105/62; PULSE 66; RESP 14; TEMP 97.8; O2SAT 98
[2024-11-27] MEDS ORDERED: nicotine 7mg patch - 24hr TD SCH (08:00)
== END 2024-11-26 17:27 | disposition home or self-care (01) ==
LOC: ER 18:10
DX: R45.851 Suicidal ideations (principal); F32.A Depression, unspecified; F12.90 Cannabis use, unspecified, uncomplicated; F10.90 Alcohol use, unspecified, uncomplicated; Z20.822 Contact with and (suspected) exposure to COVID-19; Z79.899 Other long term (current) drug therapy; Y90.9 Presence of alcohol in blood, level not specified
CPT/HCPCS: 36415; 80048; 80305; 80320; 81001; 81025; 84443; 85025; 87811; 99285; Q0177

== ENCOUNTER 2025-01-24 06:09 | Emergency (ER) | payer BC, MEDICAID ==
[~2025-01-24] VITALS: Ht 167.6 cm; Wt 55.0 kg
[~2025-01-24 06:09] MED LIST changes: -SERT-433 PO; +SERT25TA PO; +SERT50TA PO
--- NOTE | 2025-01-24 06:13 | Physician Documentation ---
History of Present Illness ~ Stated Complaint: INGESTION ERROR A ALS Time Seen by MD: 06:13 Primary Medical Doctor: DAMIAN Source: EMS HPI 24-year-old female, history of past suicidal ideation and attempt, presenting with an overdose Per EMS, the patient arrives from home, with an intentional overdose. They report that she was drinking alcohol, and did ingest an unknown amount of trazodone, possibly sertraline and hydroxyzine. Medication bottles on scene: Hydroxyzine. Trazodone 50 mg. Trazodone 100 mg. Sertraline 50 mg. Here in the ED, the patient does admit to an intentional overdose. She tells me that she took an entire bottle of trazodone, but is unable to tell me exactly how many pills. She is very vague when I asked her if she took other me dications. She does admit to alcohol use. She denies any physical self-harm or cutting. She reports feeling slightly drowsy and nauseous, but denies any other acute symptoms. Medication Reconciliation Allergies: Coded Allergies: No Known Allergies (Unverified , 10/16/24) Scheduled Sertraline Hcl* (Zoloft*), 1 TAB PO DAILY, (Reported) Scheduled PRN Trazodone HCl (Trazodone HCl), 1 TAB PO HS PRN for sleep, (Reported) Discontinued Medications Hydroxyzine Hcl* (Atarax*), 1 TAB PO DAILY PRN for anxiety, (Reported) Discontinued Reason: patient no longer taking Past Medical History Past Medical History: Depression Past Surgical History: no surgical history Alcohol Use: Alcoholic Drug Use: marijuana Lives with: Family Lives In: Home Past Social History: Reports when drinks alcohol, drinks significant amount. Review of Systems Constitutional: Denies: fever Respiratory: Denies: shortness of breath Gastrointestinal: Reports: nausea; Denies: abdominal pain, vomiting Physical Exam Physical Exam General: This is a thin young female, appears mildly sedated, arrives by EMS HEENT: Atraumatic, oropharynx is moist. Pupils are 3 mm and reactive, mild diffuse conjunctival injection. No lacerations or ligature haskins to the neck. Heart: Regular rate and rhythm, normal-appearing peripheral perfusion Lungs: Clear breath sounds bilateral, normal work of breathing, normal oxygen saturation on room air Abdomen: Soft, nondistended, nontender all quadrants Extremities: Warm and well-perfused. No acute lacerations to the extremities Neuro: Mildly sedated but awakes easily and is oriented, no focal deficits Psychiatric: Appears mildly sedated or possibly intoxicated, slightly slurred speech, is cooperative. Admits to suicidal ideation and suicide attempt Progress Results/Orders Results/Orders Orders - OSCAR RODRIGUEZ MD Med Rec (01/24/25 06:17) Close Observation Level (01/24/25 06:17) Covid19 Binax Poc Result Entry (01/24/25 06:17) Substance Use Navigator (01/24/25 06:17) Completed Orders - OSCAR RODRIGUEZ MD Cbc/Diff (01/24/25 06:17) Urinalysis (01/24/25 06:17) Hcg, Ur Ql (01/24/25 06:17) Drug Screen, Urine (01/24/25 06:17) Ethanol (01/24/25 06:17) TSH (01/24/25 06:17) Regular Diet (01/24/25 Lunch) Acetaminophen (01/24/25 06:19) MG (01/24/25 06:33) CMP (01/24/25 06:50) Salicylate (01/24/25 06:50) Electrocardiogram (01/24/25 13:22) MG (01/24/25 17:30) K (01/24/25 17:30) Store Meds In Pharmacy (Store Meds In (01/24/25 18:10) Ondansetron Disint. Tablet (Zofran Odt T (01/24/25 18:55) Menthol 1.8mg Honey Cough Drop ([place] So (01/24/25 19:05) Vital Signs 01/24/25 01/24/25 01/24/25 01/24/25 06:13 07:30 08:00 08:20 Temp 98.6 Pulse 77 77 98 Resp 16 15 16 B/P (MAP) 127/71 95/56 (69) 126/77 (93) () Pulse Ox 98 96 96 O2 Flow Rate 0 0 0 01/24/25 01/24/25 01/24/25 01/24/25 09:14 09:40 10:52 10:55 Temp 98.6 98.6 Pulse 89 86 86 Resp 17 16 17 17 B/P (MAP) 109/60 (76) 112/59 (76) 98/58 (71) Pulse Ox 96 97 99 O2 Flow Rate 0 0 0 01/24/25 01/24/25 01/24/25 01/24/25 11:07 13:21 15:00 20:20 Temp 98.6 Pulse 81 100 88 Resp 16 18 17 B/P (MAP) 111/57 (75) 116/72 (87) 123/71 (88) Pulse Ox 98 98 95 O2 Flow Rate 0 0 0 01/24/25 01/25/25 01/25/25 01/25/25 23:35 01:10 04:34 07:21 Temp 97.9 97.6 97.5 98.0 Pulse 65 68 65 77 Resp 18 18 20 17 B/P (MAP) 120/64 (82) 106/63 (77) 122/70 (87) 131/87 (102) Pulse Ox 99 100 99 99 O2 Flow Rate 0 0 0 0 01/25/25 07:25 Resp 18 B/P (MAP) Laboratory Tests Test 01/24/25 07:22 01/24/25 07:58 01/24/25 10:29 01/24/25 18:05 White Blood Count 6.8 Red Blood Count 4.23 Hemoglobin 13.9 Hematocrit 40.6 Mean Corpuscular Volume 96.1 Mean Corpuscular Hemoglobin 32.8 H Mean Corpuscular Hemoglobin Concent 34.1 Red Cell Distribution Width 14.5 Platelet Count 249 Mean Platelet Volume 6.2 L Neutrophils (%) (Auto) 74.1 Lymphocytes (%) (Auto) 16.8 L Monocytes (%) (Auto) 7.4 Eosinophils (%) (Auto) 1.3 Basophils (%) (Auto) 0.4 Neutrophils # (Auto) 5.0 Lymphocytes # (Auto) 1.1 Monocytes # (Auto) 0.5 Eosinophils # (Auto) 0.1 Basophils # (Auto) 0.0 CBC Comment Sodium Level 148 H Potassium Level 3.6 3.9 Chloride Level 112 H Carbon Dioxide Level 23.3 L Anion Gap 13 Blood Urea Nitrogen 9 Creatinine 0.40 Estimated GFR/1.73 m2 > 90 BUN/Creatinine Ratio 22.5 H Glucose Level 94 Calcium Level 7.7 L Magnesium Level 1.9 1.8 Total Bilirubin 0.3 Aspartate Amino Transf (AST/SGOT) 51 H Alanine Aminotransferase (ALT/SGPT) 36 Alkaline Phosphatase 100 Total Protein 6.7 Albumin 3.3 L Globulin 3.4 Albumin/Globulin Ratio 1.0 L Thyroid Stimulating Hormone (TSH) 0.40 Chemistry Comments Salicylates Level 2.3 L Acetaminophen Level < 2.0 L Ethyl Alcohol Level 270 H Urine Specimen Description Non-specified Urine Color Straw Urine Clarity Clear Urine pH 6.0 Urine Specific [place] <=1.005 Urine Protein Negative Urine Glucose (UA) Negative Urine Ketones Negative Urine Occult Blood Negative Urine Nitrite Negative Urine Bilirubin Negative Urine Urobilinogen 0.2 Urine Leukocyte Esterase Negative Volume Urine Centrifuged 10 ml Urine HCG, Qualitative Negative Urine Comment Urine Opiates Screen Negative Urine Methadone Screen Negative Urine Fentanyl Screen Negative Urine Barbiturates Screen Negative Urine Phencyclidine Screen Negative Urine Amphetamines Screen Negative Urine Benzodiazepines Screen Negative Urine Cocaine Screen Negative Urine Cannabinoids Screen Positive Drug Screen Comment SARS-CoV-2 Antigen (Rapid) Negative Re-Evaluation Re-Evaluation : Re-Evaluation: Improved Progress The patient is medically cleared for mental health evaluation. She has completed her 6 hour observation. On re-evaluation she is drowsy but easily awakens, denies any other acute symptoms at this time. EKG/XRAY/CT/US/VASC/MRI EKG : Additional Comment I personally interpreted the EKG and this shows: Sinus rhythm, rate 77, QTC slightly prolonged at 502, QRS 89 Consults/PCP Consults/PCP : Additional Comment Consult: Poison Center contacted for recommendations. They recommend a 6 hour observation for medical clearance. Consult: Poison Center contacted again after 6 hours. They recommend repeat electrolytes and EKG 4 hours later given that her QTC is slightly prolonged. 6:30 p.m.: Repeat EKG shows normal QTC. Pending repeat potassium and magnesium Repeat potassium and magnesium are within normal limits. Medical Decision Making Additional info obtained from: old records Findings Per chart review, the patient has a history of suicidal ideation and ER visits for this in the past. The patient was seen by mental health, the patient is currently not suicidal she does have good follow up the patient will be discharged per recommendation of mental health. Differential Dx:Considerations: Include: Alcohol abuse, Anxiety, Depression, Drug Overdose-Intentional Assessment The patient presents with an intentional overdose, possibly with trazodone, sertraline and/or hydroxyzine. Initially, she does appear mildly sedated, reports mild nausea, but otherwise no significant symptoms. Poison Center consulted as above. She was observed here in the emergency room for prolonged period of time due to Poison Center recommendations for repeat electrolytes and EKG. She will require mental health evaluation once she is medically cleared. The patient was signed out at shift change to the oncoming ER provider, pending repeat electrolytes and mental health evaluation. Oscar Rodriguez MD Departure Disposition: HOME / SELF CARE / HOMELESS Impression: Primary Impression: Suicidal ideation Additional Impression: Intentional overdose Discharge Instructions: Suicidal Feelings: How to Help Yourself Additional Instructions: Referrals: NO PRIMARY CARE PROVIDER (PCP) Signature Scribe Signature: na Attestation: OSCAR Canchola MD Jan 24, 2025 06:13 OHLAB REICH MD Jan 25, 2025 09:21
[2025-01-24 07:37] LABS: MEAN PLATELET VOLUME 6.2 FL (7.4-10.4); RED CELL DISTRIBUTION WIDTH 14.5 % (11.5-14.5)
--- NOTE | 2025-01-24 07:49 | ELECTROCARDIOGRAPH REPORT ---
[facility] Test Date: 2025-01-24 Test Time: 06:17:03 Pat Name: LEELA CARTY Department: EMERGENCY ROOM Room: Gender: F Home Care Provider: [place] : 2000 Requested By: DEPARTMENT EMERGENCY Order Number: [id number] Reading MD: Measurements Intervals [place] Rate: 77 P: 82 LA: 144 QRS: 79 QRSD: 89 T: 54 QT: 443 QTc: 502 Interpretive Statements Sinus rhythm Ventricular premature complex Probable left atrial enlargement RSR' in V1 or V2, probably normal variant Prolonged QT interval Please click the below link to view image of tracing.
[2025-01-24 07:54] LABS: CREATININE 0.40 MG/DL (0.40-0.90); TOTAL CARBON DIOXIDE 23.3 MMOL/L (24-32); eCRCL 187 ML/MIN; eGFR > 90 ML/MIN
[2025-01-24 08:04] LABS: ETHANOL 270 MG/DL (<10)
[2025-01-24 08:41] LABS: LEUKOCYTE ESTERASE ,URINE NEGATIVE (Neg); NITRITES, URINE NEGATIVE (Neg); OCCULT BLOOD,URINE NEGATIVE (Neg); URINE HCG NEGATIVE (NEG)
[2025-01-24 08:45] LABS: UA COLLECTION TYPE NON-SPECIFIED
[2025-01-24 08:55] LABS: URINE AMPHETAMINE SCREEN NEGATIVE (Neg); URINE BARBITUATE SCREEN NEGATIVE (Neg); URINE BENZODIAZEPINES SCREEN NEGATIVE (Neg); URINE CANNABINOID SCREEN POSITIVE (Neg); URINE COCAINE SCREEN NEGATIVE (Neg); URINE METHADONE SCREEN NEGATIVE (Neg); URINE OPIATE SCREEN NEGATIVE (Neg); URINE PHENCYCLIDINE SCREEN NEGATIVE (Neg)
--- NOTE | 2025-01-24 13:28 | ELECTROCARDIOGRAPH REPORT ---
[facility] Test Date: 2025-01-24 Test Time: 13:26:23 Pat Name: LEELA CARTY Department: [facility]- Patient ID: [id number] Room: Gender: F [employer] Coach: : 2000 Requested By: KULWINDER RODRIGUEZ Order Number: [id number] Reading MD: Measurements Intervals [place] Rate: 88 P: 68 AR: 137 QRS: 70 QRSD: 123 T: 51 QT: 396 QTc: 480 Interpretive Statements Sinus rhythm Nonspecific intraventricular conduction delay Please click the below link to view image of tracing.
[2025-01-24] MEDS: ondansetron 4mg rapidly disintigrating tab PO ONE (19:03)
[2025-01-24] MEDS ORDERED: HALLS - SOOTHE MENTHOL 1.8 MG cough drop LOZENGE MM PRN (19:05)
[2025-01-24] MEDS: ibuprofen tablet 400 MG TABLET PO ONE (20:01)
[2025-01-24] MEDS: potassium Cl 20 mEq SR tablet PO STA (20:01)
[2025-01-24] MEDS: NICOTINE POLACRILEX 2 MG LOZENGE BC PRN (20:16)
--- NOTE | 2025-01-25 06:14 | ELECTROCARDIOGRAPH REPORT ---
[facility] Test Date: 2025-01-24 Test Time: 18:31:03 Pat Name: LEELA CARTY Department: EMERGENCY ROOM Room: Gender: F [employer]: : 2000 Requested By: DEPARTMENT EMERGENCY Order Number: [id number] Reading MD: Measurements Intervals [place] Rate: 71 P: -47 VT: 116 QRS: 62 QRSD: 87 T: 61 QT: 420 QTc: 457 Interpretive Statements Sinus or ectopic atrial rhythm Borderline short VT interval Baseline wander in lead(s) I,aVL Please click the below link to view image of tracing.
[2025-01-25 07:21] VITALS: BP 131/87; PULSE 77; TEMP 98; O2SAT 99
[2025-01-25 07:25] VITALS: RESP 18
== END 2025-01-25 09:28 | disposition home or self-care (01) ==
LOC: ER 06:10
DX: R45.851 Suicidal ideations (principal); F32.A Depression, unspecified; Z20.822 Contact with and (suspected) exposure to COVID-19
CPT/HCPCS: 36415; 80053; 80305; 80320; 80329; 81003; 81025; 83735; 84132; 84443; 85025; 87811; 93005; 99285